=== PATIENT | female | born 1995 | race Caucasian/White ===

== ENCOUNTER → 2020-10-08 | Outpatient (CLI) ==
[~2020-10-08] MED LIST: JUNE1TAB; OMEP-221; SUMA50TA2
== END ==
LOC: M LABSMTC 11:44
PROVIDERS: ATTEND Anesthesiology
DX: Z01.818 Encounter for other preprocedural examination (principal); Z11.52 Encounter for screening for COVID-19

== ENCOUNTER 2020-10-13 09:29 | Day surgery (SDC) | payer BC ==
[~2020-10-13] VITALS: Ht 165.1 cm; Wt 67.6 kg
[~2020-10-13 09:29] MED LIST changes: +NS 1,000 ML IV ONE
[2020-10-13] MEDS ORDERED: propofoL 200 MG/20 ML VIAL As Ordered ONE ×2 (10:14→10:30)
[2020-10-13] MEDS ORDERED: LIDOCAINE 2% 100MG/5ML SDV (FOR ANES.) As Ordered ONE (10:14)
--- NOTE | 2020-10-13 10:53 | ROOR ---
Patient Name: Kelsey Pavon Procedure Date: 10/13/2020 10:29 AM Date of : 1995 Age: 25 Room: [facility] Gender: Female Note Status: Finalized Procedure: Colonoscopy Indications: Suspected irritable bowel syndrome, Irritable bowel syndrome with constipation Providers: Sal Fuentes MD Referring MD: Javier Laureano Requesting Provider: Medicines: Monitored Anesthesia Care Complications: No immediate complications. Procedure: Pre-Anesthesia Assessment: - The heart rate, respiratory rate, oxygen saturations, blood pressure, adequacy of pulmonary ventilation, and response to care were monitored throughout the procedure. The Colonoscope was introduced through the anus and advanced to 10 cm into the ileum. The colonoscopy was performed without difficulty. The patient tolerated the procedure well. The quality of the bowel preparation was good. Findings: The perianal and digital rectal examinations were normal. The colon (entire examined portion) was mildly redundant. Small Internal Hemorrhoids. The entire examined colon appeared normal on direct and retroflexion views. The terminal ileum appeared normal. Impression: - Mild to moderately redundant colon. - Small Internal Hemorrhoids. - The entire examined colon is otherwise normal on direct and retroflexion views. - The examined portion of the ileum was normal. - No specimens collected. Recommendation: - Use Linzess (linaclotide) 290 mcg PO daily. - (the script was sent to your pharmacy on file) - (Start Linzess, stop the other laxatives.) Procedure Code(s): --- Professional --- 71034, Colonoscopy, flexible; diagnostic, including collection of specimen(s) by brushing or washing, when performed (separate procedure) Diagnosis Code(s): --- Professional --- Q43.8, Other specified congenital malformations of intestine K58.1, Irritable bowel syndrome with constipation CPT copyright 2019 [employer] [place] [employer]. All rights reserved. The codes documented in this report are preliminary and upon him coder review may be revised to meet current compliance requirements. Sal Fuentes MD Sal Fuentes MD 10/13/2020 10:53:13 AM Electronically signed by Sal Fuentes MD Number of Addenda: 0 Note Initiated On: 10/13/2020 10:29 AM Estimated Blood Loss: Estimated blood loss: none.
== END 2020-10-13 13:24 | disposition home or self-care (01) ==
LOC: M OPP 09:29
PROVIDERS: ATTEND Internal Medicine Gastroenterology
DX: Q43.8 Other specified congenital malformations of intestine (principal); K58.1 Irritable bowel syndrome with constipation; K64.8 Other hemorrhoids; R10.84 Generalized abdominal pain; Z79.899 Other long term (current) drug therapy